=== PATIENT | male | born 1980 | race Hispanic/Latino ===

== ENCOUNTER 2022-12-05 08:58 | Inpatient (IN) | payer SELFPAY ==
[2022-12-05] VITALS (21 sets, daily range): BP systolic 116–137; BP diastolic 71–92; PULSE 76–100; RESP 13–36; TEMP 36.4–37.2; O2SAT 93–100; BMI 30.7
--- NOTE | ~2022-12-05 | CT_ITS ---
EXAMINATION: CT abdomen pelvis w con DATE: 12/05/2022 11:30 INDICATION: Generalized abdominal pain. Pancreatitis. TECHNIQUE: Computed tomography (CT) of the abdomen and pelvis was performed with 100 mL Omnipaque 350 intravenous contrast. Automated exposure control and iterative reconstruction technique were employe d. The dose-length product was 693.28 mGy-cm. COMPARISON: None. FINDINGS: The visualized portions of the lung bases demonstrate mild atelectasis. A calcified right l malachi nodule is consistent with old granulomatous disease. No pleural effusion. The heart size is robinson l. No pericardial effusion. The liver, gallbladder, and spleen are normal. There is fat stranding leon und the pancreas, consistent with acute interstitial pancreatitis. The adrenal glands and kidneys are normal. There are no dilated loops of bowel. The appendix is not visualized normal. There are no pat hologically enlarged lymph nodes. There is no free intraperitoneal fluid. There are chronic bilateral L5 pars defects. There is mild thoracic spondylosis. IMPRESSION: 1. Acute interstitial pancreatitis. Reviewed, dictated and finalized at location A.
--- NOTE | ~2022-12-05 | XR_ITS ---
EXAMINATION: XR ERCP DATE: 12/07/2022 16:51 INDICATION: Choledocholithiasis. TECHNIQUE: 5 spot fluoroscopic images of the right upper quadrant were obtained during endoscopic ret rograde cholangiopancreatography (ERCP). Fluoroscopy exposure time was 110. COMPARISON: MRCP 12/05/2022 FINDINGS: The endoscope is in the second portion of the duodenum. Images demonstrate balloon sweeping of the common duct. IMPRESSION: 1. Balloon sweeping of the common duct. Please refer to the ERCP procedure note for additional detail s. Reviewed, dictated and finalized at location E. IMPRESSION: 1. Balloon sweeping of the common duct. Please refer to the ERCP procedure note for additional details.
--- NOTE | ~2022-12-05 | MR_ITS ---
MRI of the abdomen: Clinical indication: Abdominal pain, pancreatitis. Technique: Coronal SSFSE ARC, WATER:coronal LAVA-FLEX, Coronal 2D FIESTA FatSat, Axial SSFSE BH ARC, Axial 3D DualEcho BH, Axial SSFSE-IR, Axial DWI b=500, Axial 2D FIESTA FatSat, pre and dynamic postco ntrast Axial LAVA ARC, postcontrast Coronal In and Opposed phase LAVA FLEX. Following intravenous adm inistration of 19 cc MultiHance gadolinium, T1-weighted fat-sat imaging was performed in the axial an d coronal planes. Findings: Multiple gallstones are noted. No gallbladder wall thickening or pericholecystic inflammat ory change. The common bile duct is nondilated. Questionable tiny filling defect in the common bile d uct. No evidence of intrahepatic biliary ductal dilatation. The pancreatic duct is normal in size. There is peripancreatic inflammatory change/fluid, consistent with acute pancreatitis. No pseudocyst or discrete fluid collection evident. There is edematous change of the pancreas itself. No evidence o f pancreatic necrosis. There is diffuse signal drop off in the liver on out of phase images relative to in phase images, con sistent with diffuse fatty infiltration. The spleen, adrenals, kidneys appear normal. The aorta and t he paraaortic regions appear normal. Impression: Acute pancreatitis. No evidence for pancreatic necrosis or pseudocyst. Diffuse fatty infiltration of liver. Cholelithiasis. Questionable tiny filling defect in the common bile duct. No intrahepatic or extrahepatic biliary dil atation. Reviewed, dictated and finalized at location . Impression: Acute pancreatitis. No evidence for pancreatic necrosis or pseudocyst. Diffuse fatty infiltration of liver. Cholelithiasis. Questionable tiny filling defect in the common bile duct. No intrahepatic or ex trahepatic biliary dilatation.
--- NOTE | ~2022-12-05 | US_ITS ---
EXAMINATION: US abdomen limited DATE: 12/05/2022 12:03 INDICATION: Pancreatitis. Elevated bilirubin. TECHNIQUE: Multiple grayscale and Doppler ultrasound images of the abdomen were obtained. COMPARISON: None FINDINGS: A portion of the pancreatic body is poorly visualized which is likely due to the pancreatic edema tim dent on the earlier CT but appears otherwise unremarkable. The majority pancreas is obscured by shado wing bowel gas. Visualized right lobe and medial segment of the left lobe of the liver has normal con tour, with a smooth surface. The lateral segment of the left hepatic lobe is not visualized likely du e to combination of high riding location with gas in the more anterior stomach and lingula. There is increased parenchymal echogenicity and coarsened echotexture consistent with diffuse hepatic steatosi s. No liver lesion identified. No intrahepatic biliary duct dilation suspected. Portal venous flow w as seen in the hepatopetal, normal direction and has normal Doppler waveform. Echogenic gallstones ar e seen within the otherwise normal gallbladder which is not dilated and with no evident gallbladder w all thickening. Sonographic Encinas sign was reported as positive by the cheese specialist. The common bile duct measures 5-6 mm in diameter which is within normal limits. The aorta and inferior vena cava are not clearly visualized. Visualized portion of the right kidney demonstrate normal contour and echogen icity with no hydronephrosis. IMPRESSION: 1. Cholelithiasis with positive sonographic Encinas sign but no gallbladder dilation or abnormal wall thickening to more specifically suggest acute cholecystitis. Positive Encinas's sign marginal spur sec ondary to the adjacent acute pancreatitis. Could consider HIDA scan for further evaluation for acute cholecystitis. 2. Diffuse hepatic steatosis. No intra or extrahepatic biliary ductal dilation. Reviewed, dictated and finalized at location A. IMPRESSION: 1. Cholelithiasis with positive sonographic Encinas sign but no gallbladder dila tion or abnormal wall thickening to more specifically suggest acute cholecystit is. Positive Encinas's sign marginal spur secondary to the adjacent acute pancre atitis. Could consider HIDA scan for further evaluation for acute cholecystitis . 2. Diffuse hepatic steatosis. No intra or extrahepatic biliary ductal dilation.
--- NOTE | ~2022-12-05 | NM_ITS ---
EXAMINATION: NM hepatobiliary w pharm DATE: 12/06/2022 13:01 INDICATION: Cholelithiasis with pancreatitis and elevated liver function tests COMPARISON: None. TECHNIQUE: 5.4 mCi Tc-99m mebrofenin (Choletec) was administered intravenously. Scintigraphic images of the abdomen were obtained for one hour. Milligrams morphine was administered by slow intravenous infusion, and imaging was continued for an additional 60 minutes minutes. Gallbladder ejection fracti on was calculated by the technologist. FINDINGS: There is normal clearance of radiotracer from the blood pool. There is homogeneous tracer uptake by t he liver activity progresses to the bowel by 30 minutes however there is still relatively significant hepatic parenchymal activity at 1 hour prior to administration morphine. This includes increased act ivity within the left hepatic duct are activity remains visible wall of the hepatic parenchymal activ ity in the additional 30 minutes following morphine administration. No activity identified within the gallbladder including 30 minutes following morphine administration consistent with acute cholecystit is. There is transient reflux of activity into the stomach which can be seen on the 11-19 minute imag es post morphine administration. IMPRESSION: 1. Nonvisualization of the gallbladder including following morphine administration consistent with a cute cholecystitis. 2. Subjectively delayed activity clearance from the liver with additional persistent increased activi ty seen in the left hepatic duct suggesting at least partial obstruction resulting from stones in the common bile duct as well as an additional stone evident at the origin of the left hepatic duct on pr ior MRCP. Reviewed, dictated and finalized at location A. IMPRESSION: 1. Nonvisualization of the gallbladder including following morphine administra tion consistent with acute cholecystitis. 2. Subjectively delayed activity clearance from the liver with additional persi stent increased activity seen in the left hepatic duct suggesting at least part ial obstruction resulting from stones in the common bile duct as well as an add itional stone evident at the origin of the left hepatic duct on prior MRCP.
[2022-12-05 09:45] LABS: Basophils Percent Auto 0.2 % (0.2-1.2); Hematocrit 48.3 % (42.0-52.0); Hemoglobin 16.4 g/dL (14.0-18.0); Immature Granulocyte Absolute 0.03 K/mm3 (0.00-0.031); Immature Granulocyte Percent A 0.3 % (0-0.5); Lymphocytes Absolute Auto 0.67 K/mm3 (0.9-3.2); Lymphocytes Percent Auto 6.8 % (18.3-44.2); Mean Corpuscular Hemoglobin 28.5 pg (26-34); Mean Corpuscular Volume 83.9 fl (80-100); Mean Platelet Volume 10.7 fl (7.4-10.4); Monocytes Absolute Auto 0.3 K/mm3 (0.1-0.6); Monocytes Percent Auto 3.4 % (2.6-8.5); Neutrophils Absolute Auto 8.8 K/mm3 (1.3-6.7); Neutrophils Percent Auto 89.3 % (45.5-73.1); Platelet Count Result 219 k/mm3 (150-375); Red Blood Count 5.76 M/mm3 (4.6-6.20); Red Cell Distribution Width 13.9 % (11.5-14.5); White Blood Count 9.9 K/mm3 (4.5-10.0)
[2022-12-05 09:56] LABS: Albumin Level 4.9 g/dL (3.5-5.1); Alkaline Phosphatase 227 U/L (38-126); Anion Gap 11 mmol/L (8-16); Bilirubin,Total 3.7 mg/dL (0.2-1.3); Blood Urea Nitrogen 19 mg/dL (9-20); Calcium 9.4 mg/dL (8.4-10.2); Carbon Dioxide 24 mmol/L (22-30); Chloride 100 mmol/L (98-107); Estimated CRCL calculation 124 ml/min; Estimated Glomerular Filt Rate > 60; Glucose 333 mg/dL (65-110); Potassium 4.3 mmol/L (3.4-5.0); Sodium 135 mmol/L (137-145)
[2022-12-05 10:04] LABS: Alanine Aminotransferase 744 U/L (6-50)
[2022-12-05 10:11] LABS: Appearance Urine Clear (Clear); Bilirubin Urine 1+ (Negative); Blood Urine Negative (Negative); Color Urine Dark Yellow (Yellow); Glucose Urine UA 3+ mg/dL (Negative); Ketones Urine Trace mg/dL (Negative); Leukocyte Esterase Ur Negative LEU/UL (Negative); Nitrate Urine Negative (Negative); Protein Urine 2+ mg/dL (Negative); pH Urine 5.5 (5.0-9.0)
[2022-12-05 10:13] LABS: Aspartate Amino Transferase 778 U/L (17-59)
[2022-12-05 10:26] LABS: Lipase 4735 U/L (23-300)
[2022-12-05 10:48] LABS: Specific Grav Ur 1.042 (1.001-1.035)
[2022-12-05 10:49] LABS: Add Urine Microscopic? YES; Mucus Urine Few /lpf
[2022-12-05 10:51] LABS: Bacteria Urine Trace /hpf; RBC Urine 0-2 /hpf (0-2); Squamous Epithelial Cell Urine Few /hpf (Few); WBC Urine 0-5 /hpf (0-3)
--- NOTE | 2022-12-05 10:53 | PC.NURSE ---
Pt ambulates into ER c/o abd pain in his URQ. States the pain started last night while laying down for bed. States the pain caused him to get no rest. States the pain is made worse when twisting his torso side to side. States he had an episode of emesis and nausea earlier this morning and states he has not had an issue since. States he took OTC medication with no relief from the pain. States he believes he has pancreatitis but is unsure. Denies any daily medications.
[2022-12-05] MEDS: SODIUM CHLORIDE 0.9% IV 1,000 ML 999 ML IV CONT ×2 (11:02→12:04)
--- NOTE | 2022-12-05 11:52 | ED.ABDPAIN ---
HPI - Abdominal Pain General Chief Complaint: Abdominal Pain Stated Complaint: abdominal pain since yest Time Seen by Provider: 12/05/22 10:43 History of Present Illness HPI narrative: 42-year-old male presented the ED for evaluation of right upper quadrant pain with associated nausea and vomiting that started last night. Patient states he has no prior history of pancreatitis, states he does not drink alcohol daily and states he has no prior history of gallbladder disease. 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 Related Data Home Medications Medication Instructions Recorded Confirmed No Home Medications 12/05/22 12/05/22 Allergies Allergy/AdvReac Type Severity Reaction Status Date / Time No Known Allergies Allergy Verified 12/05/22 10:50 Review of Systems Review of Systems: All systems reviewed & are unremarkable except as noted in HPI and below PMFSH Past Medical History Medical History (Updated 12/05/22 @ 16:00 by Lanie Sharpe PA-C) No significant past medical history Surgical History Surgical History (Updated 12/05/22 @ 15:54 by Lanie Sharpe PA-C) No history of previous surgery Family History Family History Mother Diabetes mellitus Social History Social History (Updated 12/05/22 @ 15:54 by Lanie Sharpe PA-C) Social History: Surrogate medical decision maker: Spouse. Code status: Full code. Smoking status: Never smoker Alcohol intake: never Substance use: never Substance use type: does not use Lack of Transportation: No Lack of Food: Never True Current Housing: I Have Housing Concerned About Future Housing: No Difficulty Paying Gas/Electric Bills: No Difficulty Paying for Meds: No Currently Unemployed: No Education: High School Diploma/GED Difficulty w/ Childcare or Family Care: No Additional living arrangements comments: Lives with family in [place], [place]. Additional occupation/education comments: [id number] hole digger truck driver. Spiritual care concerns: No Exam Narrative: APPEARANCE: Uncomfortable appearing HEAD: normocephalic, atraumatic. EYES: PERRLA/EOMI, conjunctivae clear. NOSE: Normal no drainage NECK: Supple. No adenopathy, no masses. RESPIRATORY: Airway patent, respirations nonlabored. Clear to auscultation bilaterally, no rales, rhonchi, wheezing. CARDIOVASCULAR: Regular rate and rhythm without murmurs rubs or gallops. ABDOMINAL: Normal bowel sounds, epigastric and right upper quadrant tenderness to palpation MUSCULOSKELETAL: Moves all extremities. Strength/ROM intact, No edema, No calf tenderness. NEURO: Alert. Cranial nerves II through XII intact. Grossly intact SKIN: Warm, dry. Normal Color Course Course Emergency Course: Patient is afebrile with no leukocytosis. Patient's hemoglobin is stable. Patient does have elevation of his T. bili AST ALT alk phos and lipase. Patient's lipase is 4700. CT abdomen pelvis does show evidence of pancreatitis. Ultrasound was ordered to evaluate for evidence of an obstructing stone. Nonobstructing stone was visualized on the CT scan. Patient was ordered medications for pain control nausea control and for IV fluids. Ultrasound showed cholelithiasis with positive sonographic Merson but no gallbladder dilation or normal wall thickening to be more specific of cholecystitis. Patient had no intra or extrahepatic biliary ductal dilation. Patient did feel improved with medications for pain control. Patient was also treated with IV fluids. Case was discussed with hospitalist and patient was accepted for admission. MRCP was ordered to further evaluate the biliary tree. Patient was updated on the results of the work-up and plan for admission. All questions and concerns were addressed. Patient was comfortable with the plan for admission. Vital Signs Vital signs: Vital Signs Temperature 97.6 F 0
[2022-12-05] MEDS: HYDROmorphone HCL INJ (*CRX) 1 MG/ML SYR IV PUSH (12:01)
[2022-12-05] MEDS: ONDANSETRON INJ 4 MG/2 ML VIAL IV PUSH (12:02)
[2022-12-05] MEDS: SODIUM CHLORIDE 0.9% IV 1,000 ML 125 ML IV CONT ×2 (13:26→23:26)
--- NOTE | 2022-12-05 15:34 | ADMGEN ---
This patient, Mateus Henning, was admitted to Medical Room 252-01. Patient/family oriented to hospital policies and general routines including ID bracelet, bed and alarms, visiting hours, pain management, procedures, bathroom and other care routines, personal items, smoking policy, room service/diet, and visiting hours. Information on how to activate the Rapid Response Team has been discussed. Patient/Family are encouraged to report perceived risks to care and to ask questions if they do not understand what they are told or what they should do.
--- NOTE | 2022-12-05 15:36 | PM.IMHP ---
H&P: HPI History of Present Illness Date/Time: 12/05/22 13:30 Chief Complaint: Abdominal pain. Narrative: This is a pleasant 42-year-old male with no known medical history presented to the emergency department via private vehicle for evaluation of abdominal pain. Not long after eating cereal for breakfast yesterday he developed diffuse upper abdominal pain situated more so in the right upper quadrant radiating around to the right flank and back. He describes a pretty constant sharp and shooting pain which is worse with touch and movement. He also endorses nausea and reports having several episodes of emesis last night. He has sweats but denies fever and chills. No chest pain, pleuritic pain, or shortness of breath. He denies hematemesis, melena, hematochezia, and diarrhea. He denies having similar symptoms previously. No history of gallbladder disease, GERD, peptic ulcers, or pancreatitis. Vital signs were stable on arrival to the ED. Pertinent labs include a total bilirubin of 3.7, AST 778, AST 744, alkaline phosphatase 227, lipase 4735, glucose 333. Urine was concentrated with 2+ protein, 3+ glucose, trace ketones. CT of the abdomen and pelvis showed acute interstitial pancreatitis. Right upper quadrant ultrasound showed cholelithiasis with positive sonographic Encinas sign and diffuse hepatic steatosis. No intra or extrahepatic biliary ductal dilatation noted. He is being admitted in this setting for further treatment and evaluation. Review of Systems Review of Systems: Twelve systems were reviewed and are negative except for as per HPI. [facility] Past Medical History Medical History (Updated 12/05/22 @ 16:00 by Lanie Sharpe PA-C) No significant past medical history Surgical History Surgical History (Updated 12/05/22 @ 15:54 by Lanie Sharpe PA-C) No history of previous surgery Family History Family History Mother Diabetes mellitus Social History Social History (Updated 12/05/22 @ 20:13 by Lanie Sharpe PA-C) Social History: Surrogate medical decision maker: Negin Henning, spouse. Code status: Full code. Smoking status: Never smoker Alcohol intake: never Substance use: never Substance use type: does not use Lack of Transportation: No Lack of Food: Never True Current Housing: I Have Housing Concerned About Future Housing: No Difficulty Paying Gas/Electric Bills: No Difficulty Paying for Meds: No Currently Unemployed: No Education: High School Diploma/GED Difficulty w/ Childcare or Family Care: No Additional living arrangements comments: Lives with family in [place], [place]. 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 Spiritual care concerns: No Meds Home Medications and Allergies Home Medications Medication Instructions Recorded Confirmed Type No Home Medications 12/05/22 12/05/22 History Allergies Allergy/AdvReac Type Severity Reaction Status Date / Time No Known Allergies Allergy Verified 12/05/22 10:50 Vital Signs Vital Signs - 24 hr 12/05/22 09:11 12/05/22 10:52 12/05/22 11:00 Temperature 97.6 F Pulse Rate 97 99 94 Respiratory Rate 22 H 24 H 17 Blood Pressure 127/83 Pulse Oximetry 98 98 98 Oxygen Delivery Room Air 12/05/22 11:01 12/05/22 11:20 12/05/22 11:33 Temperature Pulse Rate 96 83 95 Respiratory Rate 36 H 31 H 30 H Blood Pressure 137/92 H Pulse Oximetry 97 98 97 Oxygen Delivery 12/05/22 11:50 12/05/22 12:00 12/05/22 12:07 Temperature Pulse Rate 81 82 90 Respiratory Rate 25 H 18 18 Blood Pressure 120/91 H Pulse Oximetry 98 98 93 Oxygen Delivery 12/05/22 12:16 12/05/22 13:01 12/05/22 13:31 Temperature Pulse Rate 94 87 85 Respiratory Rate 15 15 13 Blood Pressure 121/89 120/84 116/82 Pulse Oximetry 93 95 94 Oxygen Delivery 12/05/22 14:01 12/05/22 14:26 12/05/22 14:30 Temper
[2022-12-05] MEDS: ACETAMINOPHEN 325 MG TABLET 650 MG PO (16:24)
[2022-12-05 17:03] LABS: Alanine Aminotransferase 652 U/L (6-50); Albumin Level 4.4 g/dL (3.5-5.1); Alkaline Phosphatase 175 U/L (38-126); Aspartate Amino Transferase 476 U/L (17-59); Triglycerides 346 mg/dL (<150)
[2022-12-05] MEDS: INSULIN ASPART (*BKC) 100 UNITS/ML SUB-Q (17:08)
[2022-12-05] MEDS: PIPERACILLN/TAZ 3.375GM/NS50ML 3.375 GM/50 ML BAG IVPB ×2 (17:11→23:24)
[2022-12-05 17:16] LABS: Glucose Point of Care 208 mg/dl (65-105)
[2022-12-05 19:28] LABS: Hemoglobin A1C 8.3 % (<5.7)
[2022-12-05] MEDS: HYDROcodone/acetaminophen (*CRX) 5-325 MG TABLET 1 TAB PO (23:33)
[2022-12-06 00:09] LABS: Glucose Point of Care 180 mg/dl (65-105)
[2022-12-06 05:23] LABS: Hemoglobin 14.3 g/dL (14.0-18.0); Mean Corpuscular HGB Conc 33.3 g/dl (32-36); Mean Corpuscular Hemoglobin 28.4 pg (26-34); Mean Corpuscular Volume 85.5 fl (80-100); Mean Platelet Volume 10.6 fl (7.4-10.4); Platelet Count Result 166 k/mm3 (150-375); Red Blood Count 5.03 M/mm3 (4.6-6.20); Red Cell Distribution Width 13.9 % (11.5-14.5); White Blood Count 7.5 K/mm3 (4.5-10.0)
[2022-12-06 05:32] LABS: Alanine Aminotransferase 530 U/L (6-50); Alkaline Phosphatase 185 U/L (38-126); Anion Gap 5 mmol/L (8-16); Aspartate Amino Transferase 284 U/L (17-59); Blood Urea Nitrogen 17 mg/dL (9-20); Calcium 8.2 mg/dL (8.4-10.2); Carbon Dioxide 30 mmol/L (22-30); Chloride 101 mmol/L (98-107); Cholesterol 228 mg/dL (0-200); Estimated CRCL calculation 125 ml/min; Estimated Glomerular Filt Rate > 60; Glucose 157 mg/dL (65-110); HDL Direct 45 mg/dL; Lipase 664 U/L (23-300); Magnesium 2.1 mg/dL (1.6-2.3); Potassium 3.7 mmol/L (3.4-5.0); Sodium 136 mmol/L (137-145); Triglycerides 288 mg/dL (<150)
[2022-12-06 05:43] LABS: LDL Cholesterol Direct 110 mg/dL
[2022-12-06 05:53] VITALS: BP 102/60; PULSE 100; RESP 16; TEMP 37.5; O2SAT 97
[2022-12-06] MEDS: PIPERACILLN/TAZ 3.375GM/NS50ML 3.375 GM/50 ML BAG IVPB ×3 (06:16→17:32)
[2022-12-06 06:23] LABS: Glucose Point of Care 161 mg/dl (65-105)
[2022-12-06] MEDS: SODIUM CHLORIDE 0.9% IV 1,000 ML 125 ML IV CONT (07:58)
--- NOTE | 2022-12-06 08:21 | PM.CNGS ---
Assessment and Plan Assessment and plan (1) Acute pancreatitis: Code(s): K85.90 - Acute pancreatitis without necrosis or infection, unspecified Status: Acute Assessment and Plan: CT and MRCP with evidence of acute interstitial pancreatitis and cholelithiasis. He also has elevated LFTs with hyperbilirubinemia. This is likely biliary pancreatitis. Total bilirubin down slightly this morning to 3.0. Although, MRCP this morning showed questionable filling defect in the common bile duct. Would recommend GI consultation to evaluate need for possible ERCP. Lipase is down to 600 today. He is clinically improving. No abdominal tenderness or peritoneal signs on exam. He is no longer having any abdominal pain. The patient will eventually need to have a laparoscopic cholecystectomy to prevent recurrence/future complications with his gallstones. The patient wants to have surgery done back in [place] where he lives. He is currently traveling for work. Discussed the importance of follow-up with a surgeon once he gets back home. Okay from our standpoint to start a liquid diet once evaluated by GI depending on their recommendations. Thank you for allowing us to see the patient in consultation. (2) Cholelithiasis: Code(s): K80.20 - Calculus of gallbladder without cholecystitis without obstruction Status: Acute (3) Transaminitis: Code(s): R74.01 - Elevation of levels of liver transaminase levels Status: Acute (4) Newly diagnosed diabetes: Code(s): E11.9 - Type 2 diabetes mellitus without complications Status: Acute Assessment and Plan: Glucose in the 300's on admission. Hgb A1C 8.3. This is new for the patient. He was placed on a sliding scale. Management per Hospitalist. Plan I have discussed the patient's case and plan of care with Dr. Cisneros. History of Present Illness Consult details Consult date: 12/06/22 Reason for consult: gallstones (Acute pancreatitis, possible cholecystitis) Requesting physician: Lanie Sharpe PA-C Narrative: This is a 42-year-old man who presented to the ER with complaints of upper abdominal pain x 1 day. He reports eating some cereal and milk late two nights ago, and shortly after he developed severe upper abdominal pain. He points across his entire upper abdomen when describing his pain. He reports associated nausea and vomiting. No alleviating factors. 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 Due to his persistent pain, he came into the ER for evaluation. Labs were significant for total bilirubin 3.7, AST 778, ALT 744, alk-phos 227, lipase 4735, and glucose 333. CT scan of the abdomen and pelvis showed acute interstitial pancreatitis. Right upper quadrant abdominal ultrasound showed cholelithiasis with a positive Encinas sign but no gallbladder dilation or abnormal wall thickening to more specifically suggest acute cholecystitis, could be related to pancreatitis. Also noted was diffuse hepatic steatosis. He was admitted to the hospitalist service. He denies any known past medical history. Hemoglobin A1c was checked as his glucose was over 300 and was found to be 8.3. He is currently NPO with IV fluids, and analgesics as needed. He was started on IV Zosyn. An MRCP and HIDA scan have been ordered. Review of Systems Review of Systems: All systems reviewed & are unremarkable except as noted in HPI and below Constitutional: Constitutional: Reports no additional constitutional complaints, Denies chills, Denies fatigue, Denies fever(s), Denies poor appetite, Denies weakness and Denies weight loss Eyes: Eyes: Reports no additional eye complaints ENT: Reports system reviewed and no additional complaints, except as documented and Denies dizziness Cardiovascular: Cardiovascular: Reports no additional cardiovascular complaints, Denies chest pain and Denies leg edema Respiratory: Respiratory: Reports no additional respiratory complaints, Denies cough and Denies dyspn
[2022-12-06] MEDS: MORPHINE SULFATE (*CRX) 2 MG/ML INJ IV PUSH (12:30)
[2022-12-06 13:11] LABS: Glucose Point of Care 178 mg/dl (65-105)
[2022-12-06] MEDS: ACETAMINOPHEN 325 MG TABLET 650 MG PO (13:12)
--- NOTE | 2022-12-06 13:43 | WPDGICN ---
Assessment and Plan Assessment and plan (1) Acute pancreatitis: Code(s): K85.90 - Acute pancreatitis without necrosis or infection, unspecified Status: Acute Assessment and Plan: Patient has acute pancreatitis appears to be on the basis of gallstones. Usually this is after a passage of a common bile duct gallstone. His lipase more markedly elevated on presentation is decreased to 600 today. LFTs remain elevated but are decreasing. Given the questionable finding of a common bile duct gallstone on MRCP. At the time of cholecystectomy a common duct cholangiogram should be performed. Alternatively an ERCP should be performed. Typically this would be done after resolution of his pancreatitis. As patient wishes to return to [place] I would advise he contact the surgeon in [place] to proceed with laparoscopic cholecystectomy with intraoperative cholangiograms. If that surgeon desires an ERCP this can be performed in [place] area were patient lives prior to the procedure. Patient does not wish to remain here over the long holiday weekend for this. Diet should be advanced slowly given patient's recent pancreatitis. Initially starting with liquid diet advancing to a low-fat diet as tolerated. Continue to monitor LFTs intermittently until resolution. (2) Cholelithiasis: Code(s): K80.20 - Calculus of gallbladder without cholecystitis without obstruction Status: Acute (3) Transaminitis: Code(s): R74.01 - Elevation of levels of liver transaminase levels Status: Acute GI Consult Note Consult date/time: 12/06/22 13:43 Reason for consult: Gallstone pancreatitis. HPI: Mateus Henning is a 42 year old male I am asked to see because of gallstone pancreatitis. Patient is a truck mechanic apprentice. He is based in [place]. Apparently was driving cross-country developed rather significant abdominal pain Saturday morning. He states it was very intense prompting and come to [facility] room in the emergency room patient was noted to have elevated LFTs as well as an elevated lipase. Imaging studies confirmed gallstones and pancreatitis. MRCP performed during this acute attack raised very questionable feeling for possible common bile duct stone no dilatation the bile ducts were noted in imaging was somewhat nonspecific. Patient reports pain is improved today. Lipase still elevated is decreased. No more nausea vomiting. Patient anxious to get return to [place] for continued therapy. Review of Systems Review of Systems: Review of systems noncontributory. [facility] Past Medical History Medical History No significant past medical history Surgical History Surgical History No history of previous surgery Family History Family History Mother Diabetes mellitus Social History Social History Social History: Surrogate medical decision maker: Negin Juvencio, spouse. Code status: Full code. Smoking status: Never smoker Alcohol intake: never Substance use: never Substance use type: does not use Lack of Transportation: No Lack of Food: Never True Current Housing: I Have Housing Concerned About Future Housing: No Difficulty Paying Gas/Electric Bills: No Difficulty Paying for Meds: No Currently Unemployed: No Education: High School Diploma/GED Difficulty w/ Childcare or Family Care: No Additional living arrangements comments: Lives with family in [place], [place]. Additional occupation/education comments: [id number] truck mechanic apprentice. Spiritual care concerns: No Meds Home Medications and Allergies Home Medications Medication Instructions Recorded Confirmed Type No Home Medications 12/05/22 12/05/22 History Allergies
[2022-12-06 14:00] VITALS: BP 117/77; PULSE 87; RESP 18; TEMP 36.7; O2SAT 97
--- NOTE | 2022-12-06 16:20 | PM.IMPN ---
Progress Note: A&P Assessment and Plan (1) Acute pancreatitis: Code(s): K85.90 - Acute pancreatitis without necrosis or infection, unspecified Status: Acute Assessment and Plan: imaging with findings of acute interstitial pancreatitis and cholelithiasis. Patient has transaminitis and hyperbilirubinemia. Gallstone pancreatitis most likely. MRCP completed today which showed questionable filling defect in the common bile duct. Patient has been evaluated by General surgery and Gastroenterology. He will need to have outpatient laparoscopic cholecystectomy but prefers to have this done where he lives in [place]. based on MRCP, he would likely require either ERCP or intraoperative cholangiogram, however this has been deferred to the surgeon with whom he arranges care in [place] per GI and General surgery. Discussed with the patient his intentions to follow-up with a general surgeon in [place] and how he plans to find a surgeon to follow-up with as he does not have a primary care provider. Patient is confident in his ability to establish care with a general surgeon. Discussed need to follow-up with primary care provider as well. Advance to clear liquid diet. Continue with gentle IV fluid rehydration unitl better tolerating diet. Continue Zosyn. Trend lipase. (2) Cholelithiasis: Code(s): K80.20 - Calculus of gallbladder without cholecystitis without obstruction Status: Acute Assessment and Plan: Positive sonographic Encinas sign. HIDA scan reveals nonvisualization of the gallbladder consistent with acute cholecystitis. Plan as above. (3) Transaminitis: Code(s): R74.01 - Elevation of levels of liver transaminase levels Status: Acute Assessment and Plan: Likely related to gallstone pancreatitis/cholecystitis. Diffuse hepatic steatosis also noted. Hepatitis panel pending. Monitor LFTs (4) Hyperglycemia: Code(s): R73.9 - Hyperglycemia, unspecified Status: Acute Assessment and Plan: Appears to be new onset diabetic. Check fasting glucose and hemoglobin A1c. Initiate sliding scale insulin, Accu-Cheks, and hypoglycemic protocol. (5) New onset type 2 diabetes mellitus: Code(s): E11.9 - Type 2 diabetes mellitus without complications Status: Acute Assessment and Plan: random glucose 330 on admission. A1c is 8.3, consistent with new onset type 2 diabetes mellitus. Subsequent blood sugars have been well controlled. Continue with Accu-Cheks, sliding scale insulin, hypoglycemic protocol. Consult to family life educator appreciated. Patient agreeable to starting metformin. (6) Hypercholesterolemia: Code(s): E78.00 - Pure hypercholesterolemia, unspecified Status: Acute Assessment and Plan: lipid panel reviewed. Total cholesterol was elevated and triglycerides elevated. will begin ezetimibe. Not a candidate for statins due to LFTs. Subjective Date/time seen: 12/06/22 16:20 Interval history: Date of service: 12/06/2022 Mateus Henning is a 42-year-old male with no prior medical history who is seen in follow-up for acute gallstone pancreatitis. Patient states he is feeling well today. His pain is resolved entirely. He complains of feeling tired. He has a mild headache. He feels hungry. He has been NPO today and is eager to start clear liquids. He is very eager for discharge home. Long discussion with the patient regarding hospital course and reiterated need for follow-up. Instructed patient to call local primary care providers back home in [place] to arrange prompt follow up care. Review of Systems Review of Systems: Twelve systems were reviewed and are negative except for as per HPI. All systems reviewed & are unremarkable except as noted in HPI and below Exam Narrative: General: well-nourished, well-appearing 42-year-old male, sitting up in bed, comfortable, NARD Neuro: awake, alert and orie
[2022-12-06 17:22] LABS: Glucose Point of Care 138 mg/dl (65-105)
[2022-12-06 21:08] VITALS: BP 119/73; PULSE 85; RESP 16; TEMP 36.7; O2SAT 99
[2022-12-07] VITALS (12 sets, daily range): BP systolic 105–121; BP diastolic 66–83; PULSE 71–87; RESP 16–21; TEMP 36.2–37; O2SAT 97–100; BMI 29.7
[2022-12-07] MEDS: SODIUM CHLORIDE 0.9% IV 1,000 ML 125 ML IV CONT ×2 (01:54→18:28)
[2022-12-07] MEDS: PIPERACILLN/TAZ 3.375GM/NS50ML 3.375 GM/50 ML BAG IVPB ×5 (01:54→23:20)
[2022-12-07] MEDS: INSULIN ASPART (*BKC) 100 UNITS/ML SUB-Q ×2 (01:54→23:20)
[2022-12-07 01:56] LABS: Glucose Point of Care 219 mg/dl (65-105)
[2022-12-07] MEDS: HYDROmorphone HCL INJ (*CRX) 1 MG/ML SYR 0.5 MG IV PUSH (02:18)
[2022-12-07 05:11] LABS: Hematocrit 41.4 % (42.0-52.0); Hemoglobin 13.8 g/dL (14.0-18.0); Mean Corpuscular HGB Conc 33.3 g/dl (32-36); Mean Corpuscular Hemoglobin 28.4 pg (26-34); Mean Corpuscular Volume 85.2 fl (80-100); Mean Platelet Volume 10.9 fl (7.4-10.4); Platelet Count Result 171 k/mm3 (150-375); Red Blood Count 4.86 M/mm3 (4.6-6.20); Red Cell Distribution Width 13.6 % (11.5-14.5); White Blood Count 5.8 K/mm3 (4.5-10.0)
[2022-12-07 05:15] LABS: Alanine Aminotransferase 573 U/L (6-50); Albumin Level 3.9 g/dL (3.5-5.1); Alkaline Phosphatase 321 U/L (38-126); Anion Gap 5 mmol/L (8-16); Aspartate Amino Transferase 491 U/L (17-59); Bilirubin,Total 4.6 mg/dL (0.2-1.3); Blood Urea Nitrogen 12 mg/dL (9-20); Calcium 8.3 mg/dL (8.4-10.2); Carbon Dioxide 28 mmol/L (22-30); Chloride 102 mmol/L (98-107); Estimated CRCL calculation 141 ml/min; Estimated Glomerular Filt Rate > 60; Glucose 166 mg/dL (65-110); Lipase 232 U/L (23-300); Potassium 3.6 mmol/L (3.4-5.0); Sodium 135 mmol/L (137-145)
[2022-12-07 06:36] LABS: Glucose Point of Care 164 mg/dl (65-105)
[2022-12-07 06:50] LABS: Hepatitis B Surface Antigen Negative (Negative)
[2022-12-07 06:56] LABS: HAV RESULT Negative (Negative); Hepatitis B Core IgM Result Negative (Negative)
[2022-12-07 07:08] LABS: Hepatitis C Virus Antibody Negative (Negative)
[2022-12-07] MEDS: ACETAMINOPHEN 325 MG TABLET 650 MG PO (08:49)
--- NOTE | 2022-12-07 08:51 | PC.NURSE ---
this nurse spoke with nurse Hull in pre-op. Pt. has a headache and is requesting medication. Currently on NPO status d/t upcoming procedure. OK per Della in GI to give PO tylenol as pt. will no tbe going for procedure until around 14:00
--- NOTE | 2022-12-07 09:52 | PM.PNGS ---
Progress Note: A&P Assessment and Plan (1) Acute pancreatitis: Qualifiers: Pancreatitis type: biliary Code(s): K85.90 - Acute pancreatitis without necrosis or infection, unspecified Status: Acute Assessment and Plan: Patient has acute pancreatitis he is to be slowly resolving. His total bilirubin has increased again today and likely suggesting a retained common bile duct stone. I did discuss with Dr. Ge her today and he plans on proceeding with a ERCP. Once that has been done and hopefully the stone has been removed we will then decide on timing for a laparoscopic cholecystectomy whether that is done here before discharge or the patient returns to [place] where he lives to have that done. (2) Cholelithiasis: Code(s): K80.20 - Calculus of gallbladder without cholecystitis without obstruction Status: Acute Assessment and Plan: Likely contributing to acute cholecystitis. Patient will need to have laparoscopic cholecystectomy at some point. Performing the surgery before he is discharged verses letting him go back to [place] in having it done there is still to be determined. Subjective Subjective Date/Time Seen: 12/07/22 09:52 Interval history: The patient is a little worse today. Having more epigastric abdominal pain. Total bilirubin has increased to 4.0. He looks a little more jaundiced. Exam Eyes: Other: Mild scleral icterus Resp: Effort & Inspection: normal respiratory effort Auscultation: clear to auscultation bilaterally Cardio: Rate: regular rate Rhythm: regular rhythm GI: Other: Soft nondistended. Epigastric tenderness to palpation. No rebound. Neuro: Speech: normal speech Psych: Mental Status: mental status grossly normal Affect: normal affect Objective Data Vital Signs Vital Signs: Vital Signs - 24 hr 12/06/22 14:00 12/06/22 19:46 12/06/22 21:08 Temperature 36.7 C 36.7 C Pulse Rate 87 85 Respiratory Rate 18 16 Blood Pressure 117/77 119/73 Pulse Oximetry 97 99 Oxygen Delivery Room Air 12/07/22 05:59 Temperature 36.7 C Pulse Rate 71 Respiratory Rate 16 Blood Pressure 115/72 Pulse Oximetry 97 Oxygen Delivery Intake/Output Intake/Output: Intake & Output 12/04/22 12/05/22 12/06/22 12/07/22 23:59 23:59 23:59 23:59 Intake Total 3050 3740 350 Balance 3050 3740 350 Meds/Results Medications: Active Medications Generic Name Dose Route Start Last Admin Trade Name Freq PRN Reason Stop Dose Admin Acetaminophen 650 mg 12/05/22 16:04 12/07/22 08:49 Acetaminophen 325 Mg Tablet PO 650 mg Q6H PRN Administration Mild Pain (1-3) or Fever Hydrocodone Bitart/Acetaminophen 1 tab 12/05/22 16:04 12/05/22 23:33 Hydrocodone/Acetaminophen (*Crx) 5-325 Mg Tablet PO 1 tab Q6H PRN Administration Pain Rated 4-6 Dextrose 12.5 gm 12/05/22 16:07 Dextrose 50% 25 Gm/50 Ml Syringe IV PUSH PRN PRN Hypoglycemia Protocol Ezetimibe 5 mg 12/07/22 09:00 Ezetimibe 5 Mg Tablet PO QAM BANDAR Glucagon 1 mg 12/05/22 16:07 Glucagon For Inj 1 Mg Vial IM PRN PRN Hypoglycemia Protocol Glucose 15 gm 12/05/22 16:07 Glucose Oral Gel 15 Gm Of Glucse In 37.5 Gm Tube PO PRN PRN Hypoglycemia Protocol Hydromorphone HCl 0.5 mg 12/05/22 16:06 12/07/22 02:18 Hydromorphone Hcl Inj (*Crx) 1 Mg/Ml Syr IV PUSH 0.5 mg Q3H PRN Administration Pain Rated 7-10 Sodium Chloride 1,000 mls @ 100 mls/hr 12/05/22 13:05 12/07/22 01:54 Normal Saline Iv IV CONT 125 mls/hr .Q10H BANDAR Administration Piperacillin/Tazobactam/Dextrose 3.375 gm in 50 mls @ 100 mls/hr 12/05/22 18:00 12/07/22 06:09 Zosyn 3.375 Gm/Ns 50 Ml IVPB 100 mls/hr Q6H BANDAR Administration Dextrose 1,000 mls @ 100 mls/hr 12/05/22 16:07 Dextrose 5% 1,000 Ml IVPB PRN PRN Hypoglycemia Protocol Insulin Aspart 2 - 5 units 12/05/22 18:00
[2022-12-07 12:18] LABS: Glucose Point of Care 151 mg/dl (65-105)
--- NOTE | 2022-12-07 12:50 | PM.IMPN ---
Progress Note: A&P Assessment and Plan (1) Acute pancreatitis: Qualifiers: Pancreatitis type: biliary Code(s): K85.90 - Acute pancreatitis without necrosis or infection, unspecified Status: Acute Assessment and Plan: imaging with findings of acute interstitial pancreatitis and cholelithiasis. Patient has transaminitis and hyperbilirubinemia. Gallstone pancreatitis most likely. MRCP completed on 12/06 which showed questionable filling defect in the common bile duct. Patient has been evaluated by General surgery and Gastroenterology. Total bilirubin and LFTs have continued to increase today, concerning for retained common bile duct stone. Planning for ERCP today. Patient will require interval cholecystectomy, timing of this will be determined following ERCP and is deferred to General surgery. NPO diet at this time. Continue with gentle IV fluid rehydration. Continue Zosyn. Lipase has normalized (2) Cholelithiasis: Code(s): K80.20 - Calculus of gallbladder without cholecystitis without obstruction Status: Acute Assessment and Plan: Positive sonographic Encinas sign. HIDA scan revealed nonvisualization of the gallbladder consistent with acute cholecystitis. Plan as above. (3) Transaminitis: Code(s): R74.01 - Elevation of levels of liver transaminase levels Status: Acute Assessment and Plan: Likely related to gallstone pancreatitis/cholecystitis. Diffuse hepatic steatosis also noted. Hepatitis panel negative. Increase in total bilirubin and LFTs today. Continue to trend (4) New onset type 2 diabetes mellitus: Code(s): E11.9 - Type 2 diabetes mellitus without complications Status: Acute Assessment and Plan: random glucose 330 on admission. A1c is 8.3, consistent with new onset type 2 diabetes mellitus. Subsequent blood sugars have been well controlled. Continue with Accu-Cheks, sliding scale insulin, hypoglycemic protocol. Consult to certified adaptive physical educator appreciated. Patient agreeable to starting metformin. (5) Hypercholesterolemia: Code(s): E78.00 - Pure hypercholesterolemia, unspecified Status: Acute Assessment and Plan: lipid panel reviewed. Total cholesterol was elevated and triglycerides elevated. Started on ezetimibe. Not a candidate for statins due to LFTs. Subjective Date/time seen: 12/07/22 12:50 Interval history: Date of service: 12/07/2022 Mateus Henning is a 42-year-old male with no prior medical history who is seen in follow-up for acute gallstone pancreatitis. He feels fair today. He does endorse epigastric pain which she rates as 6/10. Complains of feeling hungry. Tolerated clear liquids last night. He is NPO today for ERCP. Denies any shortness of breath cough, chest pain, fever, chills. No urinary symptoms. Reports having a formed bowel movement yesterday. Review of Systems Review of Systems: All systems reviewed & are unremarkable except as noted in HPI and below Exam Narrative: General: well-nourished, well-appearing 42-year-old male, sitting up in bed, comfortable, NARD Neuro: awake, alert and oriented x4, speech clear, no focal neuro deficits noted HEENMT: normocephalic, atraumatic, EOMI, sclerae anicteric Respiratory: clear to auscultation bilaterally, nonlabored breathing Cardio: regular rate, regular rhythm with S1-S2 Abdomen: nondistended, normoactive bowel sounds, soft, nontender to palpation Extremities: no edema, erythema, or tenderness to palpation, DP pulses 2+ bilaterally Skin: no rashes or lesions, warm and dry Psych: appropriate mood and affect, judgment and insight intact Objective Data Vital Signs Vital Signs: Vital Signs - 24 hr 12/06/22 14:00 12/06/22 19:46 12/06/22 21:08 Temperature 98.0 F 98.1 F Pulse Rate 87 85 Respiratory Rate 18 16 Blood Pressure 117/77 119/73 Pulse Oximetry 97 99 Oxygen Delivery Room Air 11/13
[2022-12-07] MEDS: LACTATED RINGERS 1,000 ML 150 ML IV CONT (14:25)
[2022-12-07 14:29] LABS: Glucose Point of Care 132 mg/dl (65-105)
--- NOTE | 2022-12-07 15:02 | WPDANESEPPF ---
Anes - Initial Pre Proc Eval Procedure: Operation Date: 12/07/22 14:15 Proposed Procedures p Endoscopic Retro Cholangiopancreatogram - Tito Muniz MD Date/Time: 12/07/22 15:02 Surgeon: Chilo Bradley MD Pre Op Diagnosis: pancreatitis,cholelithiasis Patient Data Age: 42 Gender: M Height: 1.8 m Weight: 96.6 kg Last Vital Signs Temp 97.4 F L 12/07/22 14:26 Pulse 76 12/07/22 14:26 Resp 18 12/07/22 14:26 BP 105/66 12/07/22 14:26 Pulse Ox 100 12/07/22 14:26 O2 Del Method Room Air 12/07/22 14:26 Allergies Allergy/AdvReac Type Severity Reaction Status Date / Time No Known Allergies Allergy Verified 12/07/22 14:25 Home Medications Medication Instructions Recorded Confirmed Type No Home Medications 12/05/22 12/05/22 History Laboratory Tests 12/06/22 12/07/22 12/07/22 17:20 01:36 04:32 WBC 5.8 K/mm3 (4.5-10.0) RBC 4.86 M/mm3 (4.6-6.20) Hgb 13.8 L g/dL (14.0-18.0) Hct 41.4 L % (42.0-52.0) MCV 85.2 fl (80-100) MCH 28.4 pg (26-34) MCHC 33.3 g/dl (32-36) RDW 13.6 % (11.5-14.5) Plt Count 171 k/mm3 (150-375) MPV 10.9 H fl (7.4-10.4) Sodium 135 L mmol/L (137-145) Potassium 3.6 mmol/L (3.4-5.0) Chloride 102 mmol/L (98-107) Carbon Dioxide 28 mmol/L (22-30) Anion Gap 5 L mmol/L (8-16) BUN 12 D mg/dL (9-20) Creatinine 0.70 mg/dL (0.7-1.3) Estim Creat Clear Calc 141 ml/min Estimated GFR > 60 (59 - ) Glucose 166 H mg/dL (65-110) POC Capillary Glucose 138 H mg/dl 219 H mg/dl (65-105) (65-105) Calcium 8.3 L mg/dL (8.4-10.2) Total Bilirubin 4.6 H mg/dL (0.2-1.3) AST 491 H U/L (17-59) ALT 573 H U/L (6-50) Alkaline Phosphatase 321 H U/L (38-126) Total Protein 7.0 g/dL (6.3-8.2) Albumin 3.9 g/dL (3.5-5.1) Lipase 232 U/L (23-300) Hepatitis A IgM Ab Negative (Negative) Hep Bs Antigen Negative (Negative) Hep B Core IgM Ab Negative (Negative) Hepatitis C Ab Screen Negative (Negative) 12/07/22 12/07/22 12/07/22 06:03 12:14 14:26 WBC RBC Hgb Hct MCV MCH MCHC RDW Plt Count MPV Sodium Potassium Chloride Carbon Dioxide Anion Gap BUN Creatinine Estim Creat Clear Calc Estimated GFR Glucose POC Capillary Glucose 164 H mg/dl 151 H mg/dl 132 H mg/dl (65-105) (65-105) (65-105) Calcium Total Bilirubin AST ALT Alkaline Phosphatase Total Protein Albumin Lipase Hepatitis A IgM Ab Hep Bs Antigen Hep B Core IgM Ab Hepatitis C Ab Screen Patient hx anesthesia problems: none Family hx anesthesia problems: none Results Review: All pre-operative results and documents have been reviewed as part of the pre-operative evaluation. [facility] Past Medical History Medical History No significant past medical history Surgical History Surgical History No history of previous surgery Family History Family History Mother Diabetes mellitus Social History Social History Social History: Surrogate medical decision maker: Negin Henning, spouse. Code status: Full code. Smoking status: Never
[2022-12-07 16:46] LABS: Glucose Point of Care 123 mg/dl (65-105)
[2022-12-07 17:58] LABS: Glucose Point of Care 163 mg/dl (65-105)
[2022-12-07 23:14] LABS: Glucose Point of Care 237 mg/dl (65-105)
[2022-12-08 05:17] VITALS: BP 101/65; PULSE 79; RESP 17; TEMP 36.6; O2SAT 96
[2022-12-08 05:43] LABS: Glucose Point of Care 153 mg/dl (65-105)
[2022-12-08 05:56] LABS: Hematocrit 41.7 % (42.0-52.0); Hemoglobin 13.9 g/dL (14.0-18.0); Mean Corpuscular HGB Conc 33.3 g/dl (32-36); Mean Corpuscular Hemoglobin 28.5 pg (26-34); Mean Corpuscular Volume 85.6 fl (80-100); Mean Platelet Volume 10.7 fl (7.4-10.4); Platelet Count Result 187 k/mm3 (150-375); Red Blood Count 4.87 M/mm3 (4.6-6.20); Red Cell Distribution Width 14.1 % (11.5-14.5); White Blood Count 7.4 K/mm3 (4.5-10.0)
[2022-12-08] MEDS: PIPERACILLN/TAZ 3.375GM/NS50ML 3.375 GM/50 ML BAG IVPB ×2 (05:57→13:05)
[2022-12-08 05:58] LABS: Alanine Aminotransferase 477 U/L (6-50); Alkaline Phosphatase 328 U/L (38-126); Anion Gap 7 mmol/L (8-16); Aspartate Amino Transferase 176 U/L (17-59); Bilirubin,Total 1.7 mg/dL (0.2-1.3); Blood Urea Nitrogen 13 mg/dL (9-20); Calcium 8.4 mg/dL (8.4-10.2); Carbon Dioxide 26 mmol/L (22-30); Chloride 103 mmol/L (98-107); Estimated CRCL calculation 125 ml/min; Estimated Glomerular Filt Rate > 60; Glucose 148 mg/dL (65-110); Sodium 136 mmol/L (137-145)
[2022-12-08] MEDS: SODIUM CHLORIDE 0.9% IV 1,000 ML 125 ML IV CONT (06:00)
--- NOTE | 2022-12-08 07:48 | WPDANESPN ---
Anes - Prog Note Post-Op Date/Time: 12/08/22 07:48 Cardiovascular status: normal Respiratory status: normal Airway patency: baseline Mental status: baseline Post-Op hydration status: normal Vital Signs: Last Vital Signs Temp 36.6 C 12/08/22 05:17 Pulse 79 12/08/22 05:17 Resp 17 12/08/22 05:17 BP 101/65 12/08/22 05:17 Pulse Ox 96 12/08/22 05:17 O2 Del Method Room Air 12/07/22 17:21 O2 Flow Rate 8 12/07/22 16:31 Pain Score (VAS): 1 I/O: Intake & Output 12/07/22 12/07/22 12/08/22 15:59 23:59 07:59 Intake Total 2545 432 3989 Balance 6965 959 4389 Laboratory Tests 12/08/22 05:21 12/08/22 05:21 12/07/22 12/07/22 12/07/22 12:14 14:26 16:44 WBC RBC Hgb Hct MCV MCH MCHC RDW Plt Count MPV Sodium Potassium Chloride Carbon Dioxide Anion Gap BUN Creatinine Estim Creat Clear Calc Estimated GFR Glucose POC Capillary Glucose 151 H 132 H 123 H Calcium Total Bilirubin AST ALT Alkaline Phosphatase Total Protein Albumin 12/07/22 12/07/22 12/08/22 17:54 23:11 05:21 WBC 7.4 RBC 4.87 Hgb 13.9 L Hct 41.7 L MCV 85.6 MCH 28.5 MCHC 33.3 RDW 14.1 Plt Count 187 MPV 10.7 H Sodium 136 L Potassium 4.0 Chloride 103 Carbon Dioxide 26 Anion Gap 7 L BUN 13 Creatinine 0.70 Estim Creat Clear Calc 125 Estimated GFR > 60 Glucose 148 H POC Capillary Glucose 163 H 237 H Calcium 8.4 Total Bilirubin 1.7 H AST 176 H ALT 477 H Alkaline Phosphatase 328 H Total Protein 7.0 Albumin 4.0 12/08/22 05:22 WBC RBC Hgb Hct MCV MCH MCHC RDW Plt Count MPV Sodium Potassium Chloride Carbon Dioxide Anion Gap BUN Creatinine Estim Creat Clear Calc Estimated GFR Glucose POC Capillary Glucose 153 H Calcium Total Bilirubin AST ALT Alkaline Phosphatase Total Protein Albumin Post-procedural complaints: none Patient Feedback: Patient satisfied with anesthetic care.
[2022-12-08] MEDS: EZETIMIBE 5 MG TABLET PO (08:48)
--- NOTE | 2022-12-08 09:29 | WPDGIPROGNO ---
Progress Note: A&P Assessment and Plan (1) Choledocholithiasis: Code(s): K80.50 - Calculus of bile duct without cholangitis or cholecystitis without obstruction Status: Acute Assessment and Plan: Multiple common duct stones extracted from the common duct yesterday at time of ERCP. Patient doing well today. Plan to advance to low-fat diet. Surgical follow-up for cholecystectomy advised. If surgery not anticipated soon it is okay with me to for patient be discharged. With surgical follow-up. (2) Acute pancreatitis: Qualifiers: Pancreatitis type: biliary Code(s): K85.90 - Acute pancreatitis without necrosis or infection, unspecified Status: Acute Assessment and Plan: Pancreatitis secondary to gallstones now resolved. (3) Cholelithiasis: Code(s): K80.20 - Calculus of gallbladder without cholecystitis without obstruction Status: Acute Assessment and Plan: Gallstones noted. The etiology of his recent pancreatitis. Surgical follow-up for cholecystectomy advised. Subjective Date/time seen: 12/08/22 09:29 Interval history: Patient feels good this morning. No additional pain. Previous pain is resolved. Tolerating liquid diet. ERCP yesterday revealed more than 10 common duct stones that were removed from his common bile duct. Review of Systems Review of Systems: Review of systems noncontributory. Exam Narrative: Physical exam reveals patient be alert. Vital signs stable. HEENT exam unremarkable. No icterus appreciated. Lungs are clear. Heart without murmur. Abdomen bowel sounds are present soft nontender with no organomegaly. Objective Data Vital Signs Vital Signs: Vital Signs - 24 hr 12/07/22 10:41 12/07/22 14:26 12/07/22 16:31 Temperature 97.4 F L 97.2 F L Pulse Rate 76 75 Respiratory Rate 18 21 H Blood Pressure 105/66 113/75 Pulse Oximetry 100 100 Oxygen Delivery Room Air Room Air Simple Face Mask Oxygen Flow Rate 8 12/07/22 16:41 12/07/22 16:51 12/07/22 17:01 Temperature Pulse Rate 82 87 81 Respiratory Rate 20 19 19 Blood Pressure 113/71 115/78 114/76 Pulse Oximetry 98 100 100 Oxygen Delivery Room Air Room Air Room Air Oxygen Flow Rate 12/07/22 17:11 12/07/22 17:21 12/07/22 17:50 Temperature 97.4 F L Pulse Rate 76 76 72 Respiratory Rate 20 20 17 Blood Pressure 109/72 120/83 118/74 Pulse Oximetry 100 100 99 Oxygen Delivery Room Air Room Air Oxygen Flow Rate 12/07/22 18:05 12/07/22 18:25 12/07/22 19:30 Temperature 97.3 F L 98.2 F 98.6 F Pulse Rate 71 74 72 Respiratory Rate 17 17 18 Blood Pressure 118/79 121/81 115/75 Pulse Oximetry 100 100 97 Oxygen Delivery Oxygen Flow Rate 12/08/22 05:17 12/08/22 08:50 Temperature 97.9 F Pulse Rate 79 Respiratory Rate 17 Blood Pressure 101/65 Pulse Oximetry 96 Oxygen Delivery Room Air Oxygen Flow Rate Intake/Output Intake/Output: Intake & Output 12/05/22 12/06/22 12/07/22 12/08/22 23:59 23:59 23:59 23:59 Intake Total 3050 3740 1840 1150 Balance 3050 3740 1840 1150 Meds/Results Medications: Active Medications Generic Name Dose Route Start Last Admin Trade Name Freq PRN Reason Stop Dose Admin Acetaminophen 650 mg 12/05/22 16:04 12/07/22 08:49 Acetaminophen 325 Mg Tablet PO 650 mg Q6H PRN Administration Mild Pain (1-3) or Fever Hydrocodone Bitart/Acetaminophen 1 tab 12/05/22 16:04 12/05/22 23:33 Hydrocodone/Acetaminophen (*Crx) 5-325 Mg Tablet PO 1 tab Q6H PRN Administration Pain Rated 4-6 Dextrose 12.5 gm 12/05/22 16:07 Dextrose 50% 25 Gm/50 Ml Syringe IV PUSH PRN PRN Hypoglycemia Protocol Ezetimibe 5 mg 12/07/22 09:00 12/08/22 08:48 Ezetimibe 5 Mg Tablet PO 5 mg QAM BANDAR Administration Glucagon 1 mg 12/05/22 16:07 Glucagon For Inj 1 Mg Vial IM PRN PRN Hypoglycemia Protocol Glucose 15 gm 12/05/22 16:
--- NOTE | 2022-12-08 10:48 | PM.PNGS ---
Progress Note: A&P Assessment and Plan (1) Choledocholithiasis: Code(s): K80.50 - Calculus of bile duct without cholangitis or cholecystitis without obstruction Status: Acute Assessment and Plan: Common bile duct stones corrected after ERCP by Dr. Muniz. Liver enzymes are decreasing. (2) Acute pancreatitis: Qualifiers: Pancreatitis type: biliary Code(s): K85.90 - Acute pancreatitis without necrosis or infection, unspecified Status: Acute Assessment and Plan: Resolved. (3) Cholelithiasis: Code(s): K80.20 - Calculus of gallbladder without cholecystitis without obstruction Status: Acute Assessment and Plan: Patient still has gallstones but no evidence of acute cholecystitis. If he is tolerating regular diet and I think he can be discharged from the hospital. He is from [facility] and would like to return to his home town to have his gallbladder removed which I have strongly recommended. However he has no established primary care doctor or in the [facility]. I told him the gallbladder surgery is not an emergency but he should probably have done in the next few weeks to months. He was given my card and if he wishes to return to the [facility] for surgery as an outpatient that he can certainly contact my office for an appointment although I would make much more sense for him to have surgery in [facility]. Subjective Subjective Date/Time Seen: 12/08/22 10:48 Interval history: Patient ERCP done by Dr. Muniz yesterday. He feels much better today. No nausea epigastric pain today. He is on a low-fat diet and seems to be doing well. Total bilirubin has dropped from 4.0 down to 1.7 after the extraction of common bile duct stones with ERCP. Exam Resp: Effort & Inspection: normal respiratory effort and able to speak in complete sentences Auscultation: clear to auscultation bilaterally Cardio: Rate: regular rate Rhythm: regular rhythm GI: Other: Abdomen soft and nondistended and nontender. Benign. Psych: Appearance: grossly normal Mental Status: mental status grossly normal Attitude: cooperative Judgement: Good judgement present (Psych) Objective Data Vital Signs Vital Signs: Vital Signs - 24 hr 12/07/22 14:26 12/07/22 16:31 12/07/22 16:41 Temperature 36.3 C L 36.2 C L Pulse Rate 76 75 82 Respiratory Rate 18 21 H 20 Blood Pressure 105/66 113/75 113/71 Pulse Oximetry 100 100 98 Oxygen Delivery Room Air Simple Face Mask Room Air Oxygen Flow Rate 8 12/07/22 16:51 12/07/22 17:01 12/07/22 17:11 Temperature Pulse Rate 87 81 76 Respiratory Rate 19 19 20 Blood Pressure 115/78 114/76 109/72 Pulse Oximetry 100 100 100 Oxygen Delivery Room Air Room Air Room Air Oxygen Flow Rate 12/07/22 17:21 12/07/22 17:50 12/07/22 18:05 Temperature 36.3 C L 36.3 C L Pulse Rate 76 72 71 Respiratory Rate 20 17 17 Blood Pressure 120/83 118/74 118/79 Pulse Oximetry 100 99 100 Oxygen Delivery Room Air Oxygen Flow Rate 12/07/22 18:25 12/07/22 19:30 12/08/22 05:17 Temperature 36.8 C 37.0 C 36.6 C Pulse Rate 74 72 79 Respiratory Rate 17 18 17 Blood Pressure 121/81 115/75 101/65 Pulse Oximetry 100 97 96 Oxygen Delivery Oxygen Flow Rate 12/08/22 08:50 Temperature Pulse Rate Respiratory Rate Blood Pressure Pulse Oximetry Oxygen Delivery Room Air Oxygen Flow Rate Intake/Output Intake/Output: Intake & Output 12/05/22 12/06/22 12/07/22 12/08/22 23:59 23:59 23:59 23:59 Intake Total 3050 3740 1840 1390 Balance 3050 3740 1840 1390 Meds/Results Medications: Active Medications Generic Name Dose Route Start Last Admin Trade Name Freq PRN Reason Stop Dose Admin Acetaminophen 650 mg 12/05/22 16:04 12/07/22 08:49 Acetaminophen 325 Mg Tablet PO 650 mg Q6H PRN Administration Mild Pain (1-3) or Fever Hydrocodone Bitart/Acetaminophen 1 tab 12/05/22 16:04 12/05/22 23:33
[2022-12-08 12:07] LABS: Glucose Point of Care 182 mg/dl (65-105)
[2022-12-08 14:10] VITALS: BP 112/73; PULSE 66; RESP 18; TEMP 36.6; O2SAT 100
--- NOTE | 2022-12-08 14:53 | PM.DS ---
DS: Admitting Diagnosis Discharge Date 12/08/2022 Admitting Diagnosis Acute choledocholithiasis with secondary acute pancreatitis DS: Discharge Diagnosis Discharge Diagnosis (1) Acute pancreatitis: Qualifiers: Pancreatitis type: biliary Code(s): K85.90 - Acute pancreatitis without necrosis or infection, unspecified Status: Acute Assessment and Plan: imaging with findings of acute interstitial pancreatitis and cholelithiasis. Patient has transaminitis and hyperbilirubinemia. Gallstone pancreatitis most likely. MRCP completed on 12/06 which showed questionable filling defect in the common bile duct. Patient has been evaluated by General surgery and Gastroenterology. Total bilirubin and LFTs have continued to increase today, concerning for retained common bile duct stone. Planning for ERCP today. Patient will require interval cholecystectomy, timing of this will be determined following ERCP and is deferred to General surgery. NPO diet at this time. Continue with gentle IV fluid rehydration. Continue Zosyn. Lipase has normalized (2) Cholelithiasis: Code(s): K80.20 - Calculus of gallbladder without cholecystitis without obstruction Status: Acute Assessment and Plan: Positive sonographic Encinas sign. HIDA scan revealed nonvisualization of the gallbladder consistent with acute cholecystitis. Plan as above. (3) Transaminitis: Code(s): R74.01 - Elevation of levels of liver transaminase levels Status: Acute Assessment and Plan: Likely related to gallstone pancreatitis/cholecystitis. Diffuse hepatic steatosis also noted. Hepatitis panel negative. Increase in total bilirubin and LFTs today. Continue to trend (4) New onset type 2 diabetes mellitus: Code(s): E11.9 - Type 2 diabetes mellitus without complications Status: Acute Assessment and Plan: random glucose 330 on admission. A1c is 8.3, consistent with new onset type 2 diabetes mellitus. Subsequent blood sugars have been well controlled. Continue with Accu-Cheks, sliding scale insulin, hypoglycemic protocol. Consult to nurses educator appreciated. Patient agreeable to starting metformin. (5) Hypercholesterolemia: Code(s): E78.00 - Pure hypercholesterolemia, unspecified Status: Acute Assessment and Plan: lipid panel reviewed. Total cholesterol was elevated and triglycerides elevated. Started on ezetimibe. Not a candidate for statins due to LFTs. DS: Summary Hospital Course Reason for hospitalization: Right upper abdominal pain Hospital Course: 42-year-old gentleman was admitted December 05 with acute onset right upper quadrant abdominal pain after eating cereal for breakfast. He was found to have elevated liver enzymes with bilirubin 3.7 and elevated AST and ALT both over 700 and lipase over 4700. Imaging revealed common duct stones as well as gallstones with possible chronic cholecystitis. He was treated with Zosyn and on 12/06 underwent ERCP with removal of common duct stones. His liver enzymes were improving as was his lipase. He was tolerating his diet up and about without difficulty. He was noted to be hyperglycemic on admission with A1c 8.3. Blood sugar was 333. He did well with sliding scale insulin and diabetic diet. On day of discharge blood sugars were and 150s to 180s with no hypoglycemia. At discharge she was transitioned metformin. Because of elevated liver enzymes statin therapy was deferred to his primary care physician in [place]. He will be seeing his 's primary care physician as a new patient when he returns to [place]. He will follow-up therapy for possible cholecystectomy at a later date. Prior to discharge she was instructed on lower in calories and carbohydrates as well as increasing activity. He was specifically instructed to avoid high sugar drinks and foods and refined flour. Time Spent with Patient Time attestation: To
[2022-12-08 16:55] LABS: Glucose Point of Care 149 mg/dl (65-105)
== END 2022-12-08 17:20 | disposition home or self-care (01) | DRG 282 ==
LOC: ANHED 12:25 → ANH3MEDSUR 14:00 → ANH2MED 15:20
PROVIDERS: Internal Medicine Gastroenterology; Physician Assistant; Admitting Provider Family Medicine; Emergency Provider Emergency Medicine; Visit Provider Internal Medicine
PROC: 0FC98ZZ Extirpation of Matter from Common Bile Duct, Via Natural or Artificial Opening Endoscopic (ICD-10-PCS; CPT 43260; principal; 2022-12-07 14:15)
DX: K85.10 Biliary acute pancreatitis without necrosis or infection (principal); K80.70 Calculus of gallbladder and bile duct without cholecystitis without obstruction; E11.9 Type 2 diabetes mellitus without complications; R74.01 Elevation of levels of liver transaminase levels; E78.00 Pure hypercholesterolemia, unspecified
CPT/HCPCS: 36415; 74177; 74183; 74329; 76376; 76705; 78227; 80053; 80061; 80074; 80076; 81001; 82948; 83036; 83690; 83735; 84478; 85025; 85027; 96361; 96365; 96375; 99285; A9270; A9537; A9577; G0378; J0330; J1100; J1170; J1815; J2270; J2405; J2543; J2704; J2805; J7030; J7120; Q9966; Q9967